=== PATIENT | male | born 1965 | race Caucasian/White ===

== ENCOUNTER 2017-05-20 11:06 | Day surgery (SDC) | payer MEDICARE, MEDICAID ==
[2017-05-19 12:15] VITALS: BMI 20.4
--- NOTE | 2017-05-20 15:41 | OP ---
DATE OF PROCEDURE: 05/20/2017 PROCEDURE: Colonoscopy (incomplete). INDICATION FOR PROCEDURE: Screening for malignant neoplasm of the colon. DESCRIPTION OF PROCEDURE: After the risks and benefits were explained to the patient's surrogate inc luding risks of bleeding, infection, perforation, reactions to anesthesia, and/or pain, informed cons ent was obtained. The patient was then taken back to the endoscopy suite where deep sedation via pro pofol and anesthesia support was administered. The standard colonoscope was then introduced into the rectum and advanced to approximately the sigmoid colon where further progress was impeded by signifi cant amount of both solid and liquid stool. The quality of the prep was poor. The patient tolerated the procedure well with no immediate perioperative complications. FINDINGS: A large amount of both solid and liquid stool was seen in the rectum and distal sigmoid co neyda preventing visualization of the colonic mucosa despite aggressive irrigation and suctioning, adeq uate visualization of the colonic mucosa could not be achieved with inability to advance the scope fu rther and inability to assess the mucosal for fine or gross lesions. IMPRESSION: A significant amount of retained stool seen in the rectum and distal sigmoid colon preve nting visualization of the colonic mucosa. RECOMMENDATIONS: 1. We would repeat the colonoscopy in 1-2 months with 2 days of clear liquid diet prep prior to colo noscopy prep with SUPREP. 2. Follow up in GI Clinic as needed.
[2017-05-20] MEDS ORDERED: Propofol 200 MG/20 ML VIAL ONE (16:48)
[2017-05-20] MEDS ORDERED: ePHEDrine/0.9% NaCl/PF SYRINGE 50 mg/10 ml ONE (16:48)
[2017-05-20] MEDS ORDERED: Glycopyrrolate 0.2 MG/ML 5 ML SYRINGE ONE (16:48)
[2017-05-20] MEDS ORDERED: PHENYLEPHRINE-NS 100 MCG/ML 10 ML SYRINGE ONE (16:48)
== END 2017-05-20 14:30 | disposition home or self-care (01) ==
LOC: SDC 11:06
PROVIDERS: ATTEND Internal Medicine
PROC: 0DJD8ZZ Inspection of Lower Intestinal Tract, Via Natural or Artificial Opening Endoscopic (ICD-10-PCS; principal; 2017-05-20)
DX: Z12.11 Encounter for screening for malignant neoplasm of colon (principal); Z88.8 Allergy status to other drugs, medicaments and biological substances; Z98.890 Other specified postprocedural states; Z53.8 Procedure and treatment not carried out for other reasons
CPT/HCPCS: J2704

== ENCOUNTER 2017-05-21 12:11 | Day surgery (SDC) | payer MEDICARE, MEDICAID ==
[2017-05-21] MEDS ORDERED: Glycopyrrolate 0.2 MG/ML 5 ML SYRINGE ONE (14:25)
[2017-05-21] MEDS ORDERED: PHENYLEPHRINE-NS 100 MCG/ML 10 ML SYRINGE ONE (14:25)
[2017-05-21] MEDS ORDERED: PROPOFOL 200 MG/20 ML VIAL ONE (14:25)
[2017-05-21] MEDS ORDERED: Lidocaine 1% PF 5 ML VIAL ONE (14:25)
--- NOTE | 2017-05-21 16:18 | OP ---
DATE OF PROCEDURE: 05/21/2017 PROCEDURE: Colonoscopy with biopsy and polypectomy. INDICATION FOR PROCEDURE: Screening for malignant neoplasm of the colon. DESCRIPTION OF PROCEDURE: After the risks and benefits of the procedure including risks of bleeding, infection, perforation, reaction to anesthesia and/or pain were explained to the patient's surrogate , informed consent was obtained. The patient was then taken back to the endoscopy suite where deep s edation was administered via propofol and anesthesia support. The standard colonoscope was then intr oduced into the rectum and advanced to the cecum with careful examination of mucosa upon withdrawal. The quality of the prep was good. The patient tolerated the procedure well with no immediate periop erative complications. FIDEL: Normal. FINDINGS: Normal-appearing mucosa was seen at the appendiceal orifice and ileocecal valve, a 6-7 mm flat polyp was seen in the cecum and completely removed with snare cautery polypectomy. Unfortunatel y, the polyp could not be retrieved for evaluation. Normal-appearing mucosa was seen in the ascendin g colon. Two polyps measuring 3 mm and 5 mm were seen in the proximal transverse colon and completel y removed with cold snare polypectomy. Of the polyps removed, the larger polyp was able to be retrie danuta for evaluation, but the smaller polyp was unable to be retrieved. It was placed in a specimen ja r for histological evaluation. Also, within the transverse colon was noted a small white worm measur ing approximately 1-2 mm in length that was seen actively moving along the colonic mucosa. Using bio psy forceps, this worm was removed from the mucosa and placed in a specimen jar for evaluation. Othe rwise, normal mucosa was seen in the distal transverse, descending, sigmoid colon, and rectum, no abn ormalities were seen on rectal retroflexion. IMPRESSION: 1. A 7-8 mm polyp seen in the cecum, status post snare cautery polypectomy, but unable to be retriev ed for evaluation. 2. Two transverse colon polyps, measuring 3 mm and 5 mm in size, status post cold snare polypectomy, but only the larger polyp was available for retrieval and placed in specimen jar. 3. Small white worm seen in the transverse colon consistent with possible whipworm or hookworm, stat us post removal and placed in a specimen jar for evaluation. RECOMMENDATIONS: 1. Follow up in the GI clinic in 2 weeks for evaluation of constipation, review of polyp removed and possible additional treatment for worm infection. 2. We will place patient on albendazole 400 mg daily x3 days for treatment of hookworm/whipworm. 3. We would continue with current bowel regimen for constipation, but consider MiraLax additionally . 4. We will follow up on biopsy results.
== END 2017-05-21 16:08 | disposition home or self-care (01) ==
LOC: SDC 12:11
PROVIDERS: ATTEND Internal Medicine
PROC: 0DBL8ZX Excision of Transverse Colon, Via Natural or Artificial Opening Endoscopic, Diagnostic (ICD-10-PCS; principal; 2017-05-21)
PROC: 0DCL8ZZ Extirpation of Matter from Transverse Colon, Via Natural or Artificial Opening Endoscopic (ICD-10-PCS; 2017-05-21)
DX: Z12.11 Encounter for screening for malignant neoplasm of colon (principal); D12.3 Benign neoplasm of transverse colon; B82.0 Intestinal helminthiasis, unspecified; F25.9 Schizoaffective disorder, unspecified; F79 Unspecified intellectual disabilities; G80.9 Cerebral palsy, unspecified; E78.00 Pure hypercholesterolemia, unspecified; M19.90 Unspecified osteoarthritis, unspecified site; K21.9 Gastro-esophageal reflux disease without esophagitis; E07.9 Disorder of thyroid, unspecified; Z88.8 Allergy status to other drugs, medicaments and biological substances; Z79.899 Other long term (current) drug therapy; Z98.890 Other specified postprocedural states
CPT/HCPCS: 88305; J2001; J2704

== ENCOUNTER 2017-06-15 11:11 | Day surgery (SDC) | payer MEDICARE, MEDICAID ==
[2017-06-14 13:50] VITALS: BMI 20.4
[2017-06-15 12:09] LABS: Calc. Creatinine Clearance 121 mL/min (70-130); Estimated GFR-MDRD Greater than 90
[2017-06-15] MEDS ORDERED: HYDROmorphone 0.5 MG/0.5 ML SYRINGE ONE (12:11)
--- NOTE | 2017-06-15 15:00 | MRI ---
MRI BRAIN WITH AND WITHOUT IV CONTRAST: Date: 06/15/17 HISTORY: Right-sided weakness. FINDINGS: No restricted diffusion is seen. No infarct, intra-axial hemorrhage, mass, or midline shift is noted. The ventricular size is appropriate and the basilar cisterns are patent. There is thickening of the dura with areas of increased T1 signal and postcontrast enhancement. Deformity of the right optic jose luis be and post-traumatic/postsurgical changes noted on CT facial bones of 04/19/12 are again seen. There is fluid in the optic nerve sheaths on either side. There is mucosal disease in the paranasal sinuses and fluid in the mastoid air cells. IMPRESSION: 1. No evidence of acute infarction or intra-axial mass. 2. Fluid in the optic nerve sheaths bilaterally. 3. Nonspecific dural enhancement and thickening. 4. Paranasal sinus disease and mastoid effusions. This study was interpreted in consultation Dr. Power Ignacio (neuroradiologist), who concurs. POS: [facility]
--- NOTE | 2017-06-15 15:28 | MRI ---
MRI RIGHT SHOULDER WITHOUT CONTRAST: Date: 06/15/17 HISTORY: Rotator cuff disorder. COMPARISON: None. FINDINGS: Biceps Tendon: There is extensive tenosynovial fluid within the extraarticular biceps tendon sheath. Glenoid Labrum: There is a tear of the entire posterior labrum and inferior labrum. There is degeneration of the ante rior labrum. The posterior inferior labral tear extends into the glenoid articular cartilage. Rotator Cuff: There is moderate interstitial tearing of the supraspinatus and infraspinatus tendons. Mild thickenin g of subscapularis. Soft Tissues: Large joint effusion. There are multiple free bodies within the joint. Within the axillary pouch, the re are multiple T1 and T2 hyperintense bodies. There is what appears to be posterior capsular rupture. There is injury to the posterior and inferior capsule. There is extensive synovial thickening. There is abnormal anterior subluxation of the humeral head. Bones: There is abnormal edema within the anterior margin of the humeral head, as well as the anterior gleno id. There is also some associated cartilage thinning. IMPRESSION: 1. Rupture of the posterior capsule, as well as the posterior band inferior glenohumeral ligamen t. There is also partial tear of the middle glenohumeral ligament. 2. Numerous free bodies within the joint which are T1 and T2 hypointense, largest in the the axillar y pouch, suggesting osteochondromatosis. 3. Anterior subluxation of the humeral head with stress edema at the humeral head and the glenoid. POS: [facility]
--- NOTE | 2017-06-15 15:59 | MRI ---
MRI OF THE CERVICAL SPINE WITH AND WITHOUT CONTRAST 06/15/17 COMPARISON: None. HISTORY: Right sided weakness. TECHNIQUE: Multiplanar and multisequence MR imaging of the cervical spine is provided with and without contrast. FINDINGS: The sagittal STIR imaging demonstrates mild increased signal intensity within the C4 and C5 vertebral bodies. The STIR imaging demonstrates no additional area of osseous marrow edema. Fluid is seen with in the facet joints on the STIR imaging on the right at C3-4 and C4-5 and on the left at C3-4 and C4- 5. No discrete prevertebral soft tissue abnormality. No significant anterolisthesis or retrolisthesis is noted. Craniocervical junction appears intact. There is moderate degenerative change at the atlan toaxial interspace. The imaged mastoid air cells demonstrate partial opacification bilaterally. C2-3: There is disc space narrowing and disc desiccation. There is moderate bilateral facet hypertrop hy. No significant central canal stenosis. Mild left and moderate right neural foraminal stenosis. C3-4: There is disc space narrowing, disc desiccation and disc bulge with partial effacement of the v entral thecal sac and a moderate degree of central canal stenosis. Prominent bilateral facet and unco vertebral osteophyte formation noted, left greater than right, with moderate/severe right and severe left neural foraminal stenosis. C4-5: There is disc space narrowing, disc desiccation and disc bulge effacing the ventral thecal sac and causing severe central canal stenosis. There is prominent bilateral facet and uncovertebral osteo phyte formation with severe bilateral neural foraminal stenosis. C5-6: Disc space narrowing, disc desiccation, disc bulge and anterior osteophyte formation noted with severe central canal stenosis. There is bilateral facet and uncovertebral osteophyte formation with severe bilateral neural foraminal stenosis. C6-7: Disc space narrowing, disc desiccation, disc bulge and anterior osteophyte formation noted. Sev ere central canal stenosis. Prominent facet and uncovertebral osteophyte formation, right greater brittnee n left. There is severe bilateral neural foraminal stenosis. C7-T1: There is disc space narrowing, disc desiccation, and disc bulge with severe central canal sten osis. There is prominent bilateral facet and uncovertebral osteophyte formation with moderate/severe left and severe right neural foraminal stenosis. T1-2: There is a prominent right paracentral/right foraminal disc osteophyte complex which causes sev ere right neural foraminal stenosis and significant central canal stenosis laterally on the right. No left neural foraminal stenosis. The postcontrast imaging demonstrates a vague degree of enhancement involving inferior aspect of C4 v ertebral body and superior aspect of C5 vertebral body. The intervertebral discs at this level does n ot enhance and the end plates appear preserved. This enhancement is in the region of the above descri bed edema on STIR imaging. While osteomyelitis cannot be completely excluded, this is felt to more li rachel be on the basis of enhancement from degenerative edematous end plate change. clinical correlatio n is essential. No paraspinal abnormality seen. IMPRESSION: There is severe multilevel degenerative change noted throughout the cervical spine with multilevel se natalia central canal and neural foraminal stenosis. There is C4-5 vertebral body edema and subtle enhan cement with no enhancement or edema of the intervening disc. Thus, enhancement and edema on the basis of degenerative change is favored over infection, but clinical correlation is essential. Recommend f ollowup imaging as clinically warranted. POS: [facility]
[2017-06-15] MEDS ORDERED: Gadobenate Dimeglumine 529 MG/1 ML (20ML VIAL) ONE (16:59)
== END 2017-06-15 16:35 | disposition home or self-care (01) ==
LOC: SDC/OP 11:11
PROVIDERS: ATTEND Preventive Medicine Medical Toxicology
DX: S43.011A Anterior subluxation of right humerus, initial encounter (principal); M24.011 Loose body in right shoulder; S43.491A Other sprain of right shoulder joint, initial encounter; M50.30 Other cervical disc degeneration, unspecified cervical region; M48.02 Spinal stenosis, cervical region; M75.101 Unspecified rotator cuff tear or rupture of right shoulder, not specified as traumatic; M62.81 Muscle weakness (generalized); R26.9 Unspecified abnormalities of gait and mobility; Z88.8 Allergy status to other drugs, medicaments and biological substances
CPT/HCPCS: 70553; 72156; 82565; A9579; J1170

== ENCOUNTER 2017-09-06 09:33 | Outpatient (CLI) | payer MEDICARE, MEDICAID ==
--- NOTE | 2017-09-06 11:39 | RAD ---
FOUR VIEWS CERVICAL SPINE: DATE: 09/06/17. COMPARISON: None. HISTORY: Radiculopathy and pain. FINDINGS: Neutral, flexion, and extension lateral imaging as well as frontal imaging provided. There is severe multilevel degenerative change noted throughout the cervical spine with marked disk s pace narrowing, degenerative end plate change, and anterior osteophyte formation at C4-5, C5-6, C6-7, and C7-T1. On the neutral lateral imaging, there is anterolisthesis of C3 on C4 measuring at least 4 mm. Upon flexion, the anterolisthesis at C3-4 measures approximately 5 mm and with extension the a nterolisthesis of C3 on C4 is no longer visualized. The frontal imaging demonstrates severe multilev el midcervical spine facet and uncovertebral osteophyte formation, left greater than right, most prom inent at C4-5 and C5-6. IMPRESSION: Severe multilevel degenerative change. Atherosclerosis of C3 on C4, most prominent with flexion. POS: [facility]
--- NOTE | 2017-09-06 12:11 | CT ---
NONCONTRAST CT CERVICAL SPINE: Date: 09/06/17 HISTORY: Patient is wheelchair bound. History of right-sided weakness. Preoperative evaluation. COMPARISON: MRI cervical spine on 06/15/17. TECHNIQUE: Contiguous axial CT images are obtained through the cervical spine from the skull base to the T2-3 le ra. Sagittal and coronal reformatted images are provided. COMPARISON: MRI cervical spine on 06/15/17. FINDINGS: No fracture or subluxation is seen involving the cervical spine. Multilevel degenerative changes are seen with prominent osteophytes seen anteriorly. C2-3 Level: As noted on the MRI, there are bilateral facet hypertrophic changes, which results in bilateral neura l foraminal narrowing, greater on the right due to prominent facet hypertrophic changes and uncinate process hypertrophy. Central spinal canal is patent. The degree of neural foraminal narrowing is mode rate in severity bilaterally and greater on the right. C3-4 Level: There are severe facet hypertrophic changes. There is a broad based disc osteophyte complex with unci lonny process hypertrophy. There is effacement of the ventral subarachnoid space. There is severe left and moderate to severe right-sided neural foraminal narrowing. These findings are similar to the MRI . C4-5 Level: There is loss of the intervertebral disc height. There are severe facet hypertrophic changes. There i s a broad based disc osteophyte complex and uncinate process hypertrophy. There is narrowing of the c entral spinal canal with severe bilateral neural foraminal narrowing present, probably related to bon y encroachment. C5-6 Level: There is loss of the intervertebral disc height. There is a broad based disc osteophyte complex with prominent uncinate process hypertrophy. This narrows the central spinal canal and also results in sev ere bilateral neural foraminal narrowing, greater on the left. C6-7 Level: There is loss of the intervertebral disc height with vacuum phenomenon in the intervertebral disc. Th ere is a broad based disc osteophyte complex with uncinate process hypertrophy bilaterally, much grea ter on the right, with resultant severe narrowing of the central spinal canal. There is also severe b ilateral neural foraminal narrowing with narrowing of the right lateral recess. C7-T1 Level: There is loss of the intervertebral disc height with vacuum phenomenon at the intervertebral disc. Th ere is broad based disc osteophyte complex with prominent uncinate process hypertrophy. There is mode rate left and severe right-sided neural foraminal narrowing. Narrowing of the central spinal canal is also present. T1-2 Level: As noted on the MRI, there is a prominent right paracentral/foraminal disc osteophyte complex resulti ng in severe right-sided neural foraminal narrowing, as well as effacement of the right lateral aspec t of the subarachnoid space and likely resultant mass effect on the spinal cord, although this is dif ficult to determine on this exam. There is only minimal mass effect on spinal cord noted on recent MR I exam. Lung apices are clear. IMPRESSION: 1. Severe multilevel degenerative changes seen throughout the cervical spine with narrowing of the c entral spinal canal, as well as moderate and severe degrees of neural foraminal narrowing at multiple levels. Findings are similar to the MRI examination on 06/15/17. 2. There is mention of edema and subtle enhancement involving the C4 and C5 vertebral bodies, but th e end plates are preserved on this CT examination, and there are no findings to suggest osteomyelitis based on CT evaluation. While osteomyelitis cannot be excluded given MRI findings, findings are like ly degenerative in origin. POS: [facility]
== END 2017-09-06 09:34 | disposition home or self-care (01) ==
LOC: TBSIIMAG 09:33
PROVIDERS: ATTEND Surgery
DX: M47.12 Other spondylosis with myelopathy, cervical region (principal); M48.02 Spinal stenosis, cervical region; M99.81 Other biomechanical lesions of cervical region; G95.19 Other vascular myelopathies
CPT/HCPCS: 72050; 72125

== ENCOUNTER 2017-09-08 10:09 | Outpatient (CLI) | payer MEDICARE, MEDICAID ==
--- NOTE | 2017-09-10 15:53 | RAD ---
MODIFIED BAIRUM SWALLOW: INDICATION: History of dysphagia, pharyngeal phase, [id number], and pneumonitis due to inhalation of food and vomit, J 69.0. Fluoroscopic time 3 seconds. Total exposure 0.2436 mGy*^m2. TECHNIQUE: Video fluoroscopic examination was submitted from the speech therapy department. Please see their di ctation for full details concerning materials administered. Total fluoroscopic time was 22.96. Tota l exposure was 21.89 mGy. FINDINGS: The patient had premature spill on multiple consistencies within the vallecula and piriform sinuses. There were no episodes of aspiration with puree or nectar. The patient did have aspiration with thi n barium liquids. IMPRESSION: 1. Episodes of tracheal aspiration with thin barium liquids. 2. Episodes of premature spill and pooling on all consistencies. 3. Please see separate dictation for further details. POS: [facility]
== END 2017-09-08 10:10 | disposition home or self-care (01) ==
PROVIDERS: ATTEND Internal Medicine
DX: R13.14 Dysphagia, pharyngoesophageal phase (principal); J69.0 Pneumonitis due to inhalation of food and vomit
CPT/HCPCS: 74230; G8996-GN-CK; G8997-GN-CJ; G8998-GN-CK

== ENCOUNTER 2021-01-02 09:31 | Outpatient (CLI) | payer MEDICARE, MEDICAID ==
[2021-01-02 20:17] LABS: SARS-CoV-2 PCR by NAA Not Detected (NotDetected)
== END 2021-01-02 09:32 | disposition home or self-care (01) ==
LOC: LABBT 09:31
PROVIDERS: ATTEND Internal Medicine
DX: Z01.812 Encounter for preprocedural laboratory examination (principal); D12.6 Benign neoplasm of colon, unspecified; R93.3 Abnormal findings on diagnostic imaging of other parts of digestive tract; Z20.822 Contact with and (suspected) exposure to COVID-19
CPT/HCPCS: U0003; U0005

== ENCOUNTER 2021-03-10 09:26 | Outpatient (CLI) | payer MEDICARE, MEDICAID ==
[2021-03-10 17:46] LABS: SARS-CoV-2 PCR by NAA Not Detected (NotDetected)
== END 2021-03-10 09:27 | disposition home or self-care (01) ==
LOC: LABBT 09:26
PROVIDERS: ATTEND Internal Medicine
DX: Z01.812 Encounter for preprocedural laboratory examination (principal); D12.6 Benign neoplasm of colon, unspecified; R93.3 Abnormal findings on diagnostic imaging of other parts of digestive tract; Z20.822 Contact with and (suspected) exposure to COVID-19
CPT/HCPCS: U0003; U0005

== ENCOUNTER 2021-03-13 09:32 | Day surgery (SDC) | payer MEDICARE, MEDICAID ==
[2021-03-12 09:50] VITALS: BMI 27.1
[2021-03-13] MEDS ORDERED: ePHEDrine 50 MG/ML VIAL ONE (10:59)
[2021-03-13] MEDS ORDERED: Lidocaine 1% PF 5 ML VIAL ONE (10:59)
[2021-03-13] MEDS ORDERED: Phenylephrine 10 MG/ML VIAL ONE (10:59)
[2021-03-13] MEDS ORDERED: PROPOFOL 200 MG/20 ML VIAL ONE (10:59)
== END 2021-03-13 12:25 ==
LOC: SDC 09:32
PROVIDERS: ATTEND Internal Medicine
PROC: 0DJD8ZZ Inspection of Lower Intestinal Tract, Via Natural or Artificial Opening Endoscopic (ICD-10-PCS; principal; 2021-03-13)
DX: Z12.11 Encounter for screening for malignant neoplasm of colon (principal); G47.33 Obstructive sleep apnea (adult) (pediatric); D50.9 Iron deficiency anemia, unspecified; E78.5 Hyperlipidemia, unspecified; E03.9 Hypothyroidism, unspecified; G80.9 Cerebral palsy, unspecified; F73 Profound intellectual disabilities; Z86.010 Personal history of colon polyps; Z79.899 Other long term (current) drug therapy; Z88.8 Allergy status to other drugs, medicaments and biological substances
CPT/HCPCS: J2370; J2704; J3490

== ENCOUNTER 2022-07-07 06:11 | Day surgery (SDC) | payer MEDICARE, MEDICAID ==
[2022-07-02 14:56] VITALS: BMI 24.5
[2022-07-07] MEDS ORDERED: PROPOFOL 200 MG/20 ML VIAL ONE (07:38)
[2022-07-07] MEDS ORDERED: Lidocaine 1% PF 5 ML VIAL ONE (07:38)
== END 2022-07-07 08:41 | disposition home or self-care (01) ==
LOC: SDC 06:11
PROVIDERS: ATTEND Internal Medicine
PROC: 0DJD8ZZ Inspection of Lower Intestinal Tract, Via Natural or Artificial Opening Endoscopic (ICD-10-PCS; principal; 2022-07-07)
DX: Z12.11 Encounter for screening for malignant neoplasm of colon (principal); D50.9 Iron deficiency anemia, unspecified; E78.5 Hyperlipidemia, unspecified; E03.9 Hypothyroidism, unspecified; G80.9 Cerebral palsy, unspecified; F73 Profound intellectual disabilities; Z53.8 Procedure and treatment not carried out for other reasons; Z86.010 Personal history of colon polyps; Z79.890 Hormone replacement therapy; Z79.899 Other long term (current) drug therapy; Z88.8 Allergy status to other drugs, medicaments and biological substances
CPT/HCPCS: J2704